=== PATIENT | male | born 1950 | race Caucasian/White ===

== ENCOUNTER 2019-12-20 17:08 | Emergency (ER) | payer OTHER ==
[~2019-12-20] VITALS: Ht 177.8 cm; Wt 75.0 kg
[2019-12-20] MEDS ORDERED: ONDANSETRON 2MG/ML, 2ML IVPush ONE (17:30)
[2019-12-20] MEDS ORDERED: MORPHINE SULFATE 4 MG/ML, 1ML IVPush PRN (17:30)
[2019-12-20] MEDS ORDERED: SODIUM CHLORIDE FLUSH 10ML SYR IVF ONE (17:30)
--- NOTE | 2019-12-20 17:31 | NUR ---
Pt c/o L flank pain, states kidney stone. Has HX. Mild nausea from pain. No other complaints. Family at bedside.
[2019-12-20] MEDS ORDERED: ONDANSETRON 2MG/ML, 2ML ONE (17:35)
[2019-12-20] MEDS ORDERED: MORPHINE SULFATE 4 MG/ML, 1ML ONE (17:35)
--- NOTE | 2019-12-20 17:45 | NUR ---
Pt medicated for pain, states improvement
[2019-12-20 17:49] LABS: ALANINE AMINOTRANSFERASE 33 U/L (12-78); ALBUMIN 3.6 g/dL (3.4-5.0); ANION GAP 6 mmol/L (5-15); CHLORIDE 105 mmol/L (98-107)
[2019-12-20 17:51] LABS: ALKALINE PHOSPHATASE 79 U/L (45-117); BILIRUBIN,TOTAL 0.6 mg/dL (0.2-1.0); TOTAL PROTEIN 7.8 g/dL (6.4-8.2)
[2019-12-20 17:59] LABS: BASOPHILS # (AUTO) 0.04 x10^3/uL (0-0.1); BASOPHILS % (AUTO) 0 % (0-1); EOSINOPHILS # (AUTO) 0.18 x10^3/uL (0-0.4); EOSINOPHILS % (AUTO) 1 % (1-7); LYMPHOCYTES # (AUTO) 1.07 x10^3/uL (1-3.4); LYMPHOCYTES % (AUTO) 8 % (22-44); MD NO; MEAN CORPUSCULAR HEMOGLOBIN 29.4 pg (27.5-34.5); MEAN CORPUSCULAR HGB CONC 31.8 g/dL (33.2-36.2); MEAN CORPUSCULAR VOLUME 92.6 fL (81-97); MEAN PLATELET VOLUME 9.1 fL (7.4-10.4); MONOCYTES # (AUTO) 0.52 x10^3/uL (0.2-0.8); MONOCYTES % (AUTO) 4 % (2-9); NEUTROPHILS # (AUTO) 11.12 x10^3/uL (1.8-6.8); NEUTROPHILS % (AUTO) 86 % (42-75); PLATELET COUNT 238 x10^3/uL (130-400); RED BLOOD COUNT 5.84 x10^6/uL (4.38-5.82); RED CELL DISTRIBUTION WIDTH 15.6 % (9.4-14.8)
[2019-12-20 18:12] VITALS: BP 117/56
--- NOTE | 2019-12-20 18:16 | NUR ---
Pt to CT
[2019-12-20] MEDS ORDERED: FLUT1BLS3 IH (18:27)
--- NOTE | 2019-12-20 18:27 | NUR ---
Pt back from CT
[2019-12-20] MEDS ORDERED: SODIUM CHLORIDE 0.9% 1,000ML IVBOLUS ONE (19:00)
--- NOTE | 2019-12-20 19:00 | NUR ---
USEA, NO VOMITING, CONSTANT ACHING PAINRECEIVED REPORT, ASSUMED CARE OF A 69 YEAR OLD MALE TO ED FOR LEFT FLANK PAIN. HE ENDORSES NAUSEA, NO VOMITING, AND A PMHX OF RENAL STONES. HE WAS REMINDED OF THE NEED FOR URINE. FAMILY AT BEDSIDE.
[2019-12-20] MEDS ORDERED: KETOROLAC 30 MG/1 ML ONE (19:08)
[2019-12-20] MEDS ORDERED: KETOROLAC 30 MG/1 ML IVPush ONE (19:30)
[2019-12-20 20:15] LABS: MICROSCOPIC INDICATED
--- NOTE | 2019-12-20 21:09 | NUR ---
Patient/Caregiver given discharge instructions and they have confirmed that they understand the instructions. Patient ambulatory with steady gait. pt states no pain at this time
== END 2019-12-20 21:12 | disposition home or self-care (01) ==
LOC: ED 19:01
DX: N13.2 Hydronephrosis with renal and ureteral calculous obstruction (principal)
CPT/HCPCS: 36415; 74176; 80053; 81001; 85025; 87086; 96361; 96374; 96375; 99284; J1885; J2270; J2405; J7030

== ENCOUNTER 2019-12-25 15:56 | Emergency (ER) | payer MEDICARE, OTHER ==
[~2019-12-25] VITALS: Ht 177.8 cm; Wt 72.0 kg
[~2019-12-25 15:56] MED LIST: FLUT1BLS3 IH
[2019-12-25 16:49] VITALS: BP 142/75
[2019-12-25] MEDS ORDERED: SODIUM CHLORIDE 0.9% 1,000ML IVBOLUS ONE (17:00)
[2019-12-25] MEDS ORDERED: ONDANSETRON 2MG/ML, 2ML IVPush ONE (17:00)
[2019-12-25] MEDS ORDERED: SODIUM CHLORIDE FLUSH 10ML SYR IVF ONE (17:00)
[2019-12-25] MEDS ORDERED: ONDANSETRON 2MG/ML, 2ML ONE (17:01)
[2019-12-25] MEDS ORDERED: KETOROLAC 30 MG/1 ML ONE (17:01)
[2019-12-25 17:52] LABS: ALBUMIN 2.7 g/dL (3.4-5.0); ANION GAP 8 mmol/L (5-15); CALCIUM 8.9 mg/dL (8.5-10.1); CHLORIDE 105 mmol/L (98-107); CREATININE 1.93 mg/dL (0.7-1.3)
[2019-12-25] MEDS ORDERED: KETOROLAC 30 MG/1 ML IVPush ONE (18:00)
[2019-12-25 18:17] LABS: MEAN CORPUSCULAR HEMOGLOBIN 29.7 pg (27.5-34.5); MEAN CORPUSCULAR HGB CONC 31.9 g/dL (33.2-36.2); PLATELET COUNT 255 x10^3/uL (130-400); RED BLOOD COUNT 5.41 x10^6/uL (4.38-5.82); RED CELL DISTRIBUTION WIDTH 15.5 % (9.4-14.8)
--- NOTE | 2019-12-25 18:54 | NUR ---
REPORT RECIEVED FROM ELOY KNIGHT. ASSUMED CARE
[2019-12-25 19:19] LABS: MICROSCOPIC INDICATED
[2019-12-25 19:29] LABS: BASOPHILS # (AUTO) 0.07 x10^3/uL (0-0.1); BASOPHILS % (AUTO) 1 % (0-1); EOSINOPHILS # (AUTO) 0.15 x10^3/uL (0-0.4); EOSINOPHILS % (AUTO) 1 % (1-7); LYMPHOCYTES # (AUTO) 0.88 x10^3/uL (1-3.4); LYMPHOCYTES % (AUTO) 7 % (22-44); MD SCAN; MONOCYTES # (AUTO) 0.73 x10^3/uL (0.2-0.8); MONOCYTES % (AUTO) 6 % (2-9); NEUTROPHILS # (AUTO) 10.18 x10^3/uL (1.8-6.8); NEUTROPHILS % (AUTO) 85 % (42-75)
[2019-12-25] MEDS ORDERED: LEVOFLOXACIN 500 MG TABLET PO ONE (19:30)
[2019-12-25] MEDS ORDERED: LEVOFLOXACIN 750 MG TABLET ONE (19:32)
[2019-12-25] MEDS ORDERED: LEVOFLOXACIN 750 MG TABLET PO ONE (20:00)
== END 2019-12-25 19:47 | disposition home or self-care (01) ==
LOC: ED 17:20
DX: N20.1 Calculus of ureter (principal); J44.9 Chronic obstructive pulmonary disease, unspecified; Z87.891 Personal history of nicotine dependence
CPT/HCPCS: 36415; 74018; 80048; 81001; 82040; 85025; 87086; 96361; 96374; 99284; J2405; J7030; 99283